=== PATIENT | female | born 1980 | race Hispanic/Latino ===

== ENCOUNTER 2017-05-11 21:08 | Emergency (ER) | payer OTHER ==
[~2017-05-11 21:08] MED LIST: DIFLUCAN150 MG PO; ZOFRAN ODT4 M1 SL
--- NOTE | 2017-05-11 23:56 | ED GI/GU/ABDOMINAL COMPLAINT ---
History of Present Illness General Chief Complaint: Abdominal Pain/Flank Pain Stated Complaint: PT IS HAVING BACK PAIN Source: patient Exam Limitations: no limitations Vital Signs & Intake/Output Vital Signs & Intake/Output Vital Signs Date Time Temp Pulse Resp B/P B/P Pulse O2 O2 Flow FiO2 Mean Ox Delivery Rate 05/12 0015 97.1 65 18 96/60 96 Room Air 05/11 2124 98.1 79 16 126/76 98 Room Air ED Intake and Output 05/12 0000 05/11 1200 Intake Total Output Total Balance Patient 245 lb Weight Weight Reported by Patient Measurement Method Allergies Coded Allergies: cat dander (SNEEZING, ITCHY EYES, HIVES 03/05/16) Reconcile Medications No Known Home Medications Triage Note: 36F C/O 10/10 LEFT LOWER BACK PAIN, SHARP AND CONSTACT WITH ASSOCIATED L SIDED ABDOMINAL PAIN, -N/V. +DIZZINESS. PAIN WORSE WITH MOVEMENT. DENIES SYMPTOMS. TOOK IBUPROFEN 2 HOURS AGO WITHOUT IMPROVEMENT. LAST BM TODAY AND NORMAL. DENIES CP/SOB. DENIES HEADACHE. AFEBRILE Triage Nurses Notes Reviewed? yes ? n Is pt currently ? No Onset: Gradual Duration: day(s): Timing: recent history Quality/Severity: mild Location: left flank Radiation: LLQ Activities at Onset: none Prior Abdominal Problems: none HPI: 6-year-old woman in prior good health presents with left back and left flank pain lasting for one day. She noted mild nausea. She notes that it hurts when she moves. She has no fever chills dyspnea chest pain diarrhea or dysuria or vaginal symptoms or syncopal type symptoms. She is otherwise well. She does not recall if she ate any inciting foods. She is presently in mild discomfort with pain in her left flank. Past History Travel History Traveled to [place] past 21 day No Medical History Any Pertinent Medical History? see below for history Neurological: NONE EENT: NONE Cardiovascular: hypertension Respiratory: asthma Gastrointestinal: NONE Hepatic: NONE Renal: NONE Musculoskeletal: NONE Psychiatric: NONE Endocrine: NONE Blood Disorders: NONE Cancer(s): NONE COAGULANT DIPPER/Reproductive: NONE Surgical History Surgical History: cholecystectomy Psychosocial History Who do you live with Family What is your primary language Albanian Tobacco Use: Current Daily Use Daily Tobacco Use Amount/Type: => 5 Cigarettes daily ETOH Use: occasional use Illicit Drug Use: denies illicit drug use Family History Hx Contributory? No Review of Systems Review of Systems Constitutional: Reports: no symptoms. EENTM: Reports: no symptoms. Respiratory: Reports: no symptoms. Cardiovascular: Reports: no symptoms. GI: Reports: no symptoms. Genitourinary: Reports: no symptoms. Musculoskeletal: Reports: no symptoms. Skin: Reports: no symptoms. Neurological/Psychological: Reports: no symptoms. Hematologic/Endocrine: Reports: no symptoms. Immunologic/Allergic: Reports: no symptoms. All Other Systems: Reviewed and Negative Physical Exam Physical Exam General Appearance: well developed/nourished, mild distress Head: atraumatic, normal appearance Eyes: Bilateral: normal appearance. Ears, Nose, Throat, Mouth: hearing grossly normal Neck: normal inspection, supple, full range of motion Respiratory: normal breath sounds, chest non-tender Cardiovascular: regular rate/rhythm Gastrointestinal: normal bowel sounds, soft, mild left upper tenderness to palpation. no rebound. no guarding. Back: muscle spasm, no vertebral tenderness, left sided muscle spasm and tenderness to palpation Core Measures ACS in differential dx? No Severe Sepsis Present: No Septic Shock Present: No Progress Differential Diagnosis: kidney stone, ovarian cyst, PUD/GERD, UTI/pyelo, vs other Plan of Care: Orders Procedure Date/time Status LIPASE 05/11 2337 Complete COMPREHENSIVE METABOLIC PANEL 05/11 2337 Complete CBC WITHOUT DIFFERENTIAL 05/11 2337 Complete AMYLASE 05/11 2337 Complete URINE 05/11 2129 Complete URINALYSIS 05/11 2129 Complete Laboratory Tests 05/12/17 0005: Anion Gap 9, Estimated GFR > 60, BUN/Creatinine Ratio 21.7, Glucose 102 H, Calcium 9.0, Total Bilirubin 0.3, AST 33, ALT 39, Alkaline Phosphatase 118, Total Protein 7.3, Albumin 3.7, Globulin 3.6, Albumin/Globulin Ratio 1.0 L, Amylase 70, Lipase 105, CBC w Diff NO MAN DIFF REQ, RBC 4.69, MCV 67.4 L, MCH 20.8 L, RDW 21.1 H, MPV 7.7, Gran % 45.8, Lymphocytes % 44.3, Monocytes % 5.6, Eosinophils % 3.7, Basophils % 0.6, Absolute Granulocytes 5.3, Absolute Lymphocytes 5.1 H, Absolute Monocytes 0.6, Absolute Eosinophils 0.4, Absolute Basophils 0.1, PUBS MCHC 30.8 L 05/11/172134: Urine Color YEL, Urine Clarity CLEAR, Urine pH 6.0, Ur Specific [place] 1.025, Urine Protein NEG, Urine Ketones NEG, Urine Nitrite NEG, Urine Bilirubin NEG, Urine Urobilinogen 0.2, Ur Leukocyte Esterase NEG, Ur Microscopic EXAM NOT REQUIRED, Urine Hemoglobin NEG, Urine Glucose NEG, Urine Test NEGATIVE Diagnostic Imaging: Viewed by Me: CT Scan. Discussed w/RAD: CT Scan. Radiology Impression: abd/pelvic ct... no acute change.. full report below. Initial ED EKG: normal axis, normal intervals, normal p-waves, normal QRS complex, normal sinus rhythm Comments: PATIENT: SRI PARR PRESENT AGE: 36 PATIENT ACCOUNT NO: [id number] : 78 LOCATION: [facility] ORDERING PHYSICIAN: ROOPA LOO MD SERVICE DATE: 05/11/17 EXAM TYPE: CAT - CT ABD & PELVIS W/O IV CONTRAS EXAMINATION: CT ABDOMEN AND PELVIS WITHOUT CONTRAST CLINICAL INFORMATION: Right lower quadrant pain. Left flank pain. COMPARISON: 08/28/2012 TECHNIQUE: Multidetector volumetric imaging was performed from the superior aspect of the liver through the pubic symphysis. Sagittal and coronal reformatted images were obtained on the technologist's workstation. DLP: 1236 mGy-cm FINDINGS: LUNG BASES: The visualized lung bases are unremarkable. Small lymph nodes in the epicardial fat are unchanged. LIVER, GALLBLADDER, AND BILIARY TREE: The liver is normal in size, shape, and attenuation. No focal hepatic lesion or biliary ductal dilatation is present. The gallbladder is not seen, likely absent. PANCREAS: Unremarkable. SPLEEN: Unremarkable. ADRENAL GLANDS: Unremarkable. KIDNEYS AND URETERS: The kidneys are normal in size, shape, and attenuation. No hydronephrosis, hydroureter, or calculi seen. No perinephric stranding. BLADDER: Unremarkable. GASTROINTESTINAL TRACT: The stomach and small bowel are unremarkable. No dilated loops of bowel or evidence of obstruction. There is a normal appendix. No colonic wall thickening or inflammatory change. Moderate colonic stool burden. No free air or free fluid. ABDOMINAL WALL: No significant hernia is appreciated. LYMPH NODES: Normal. VASCULAR: Unremarkable. PELVIC VISCERA: The uterus and adnexa are unremarkable. OSSEOUS STRUCTURES: No acute or suspicious osseous abnormalities. IMPRESSION: No acute findings of the abdomen or pelvis. Normal appendix. No hydronephrosis or nephrolithiasis. Moderate colonic stool burden. DICTATED BY: SALVADOR JONES MD DATE/TIME DICTATED:05/12/171 KEY ACCOUNT COORDINATOR:BLU DATE/TIME TRANSCRIBED:05/12/171 CONFIDENTIAL, DO NOT COPY WITHOUT APPROPRIATE AUTHORIZATION. <Electronically signed in Other Vendor System> SIGNED BY: SALVADOR JONES MD 05/12 0010 Departure Departure Disposition: HOME OR SELF CARE Condition: Stable Clinical Impression Primary Impression: Abdominal pain Referrals: PATIENT HAS NO PRIMARY CARE DR (PCP/Family) Departure Forms: Customer Survey General Discharge Information Prescriptions: Current Visit Scripts No Known Home Medications
--- NOTE | 2017-05-12 00:10 | CT SCAN REPORT ---
EXAMINATION: CT ABDOMEN AND PELVIS WITHOUT CONTRAST CLINICAL INFORMATION: Right lower quadrant pain. Left flank pain. COMPARISON: 08/28/2012 TECHNIQUE: Multidetector volumetric imaging was performed from the superior aspect of the liver through the pubic symphysis. Sagittal and coronal reformatted images were obtained on the technologist's workstation. DLP: 1236 mGy-cm FINDINGS: LUNG BASES: The visualized lung bases are unremarkable. Small lymph nodes in the epicardial fat are unchanged. LIVER, GALLBLADDER, AND BILIARY TREE: The liver is normal in size, shape, and attenuation. No focal hepatic lesion or biliary ductal dilatation is present. The gallbladder is not seen, likely absent. PANCREAS: Unremarkable. SPLEEN: Unremarkable. ADRENAL GLANDS: Unremarkable. KIDNEYS AND URETERS: The kidneys are normal in size, shape, and attenuation. No hydronephrosis, hydroureter, or calculi seen. No perinephric stranding. BLADDER: Unremarkable. GASTROINTESTINAL TRACT: The stomach and small bowel are unremarkable. No dilated loops of bowel or evidence of obstruction. There is a normal appendix. No colonic wall thickening or inflammatory change. Moderate colonic stool burden. No free air or free fluid. ABDOMINAL WALL: No significant hernia is appreciated. LYMPH NODES: Normal. VASCULAR: Unremarkable. PELVIC VISCERA: The uterus and adnexa are unremarkable. OSSEOUS STRUCTURES: No acute or suspicious osseous abnormalities. IMPRESSION: No acute findings of the abdomen or pelvis. Normal appendix. No hydronephrosis or nephrolithiasis. Moderate colonic stool burden.
[2017-05-12 00:15] VITALS: BP 96/60
[2017-05-12 00:29] LABS: ABSOLUTE BASOPHIL COUNT 0.1 /CUMM (0.0-0.2); ABSOLUTE EOSINOPHIL COUNT 0.4 /CUMM (0.0-0.7); ABSOLUTE GRANULOCYTE CT 5.3 /CUMM (1.4-6.5); ABSOLUTE LYMPH COUNT 5.1 /CUMM (1.2-3.4); ABSOLUTE MONOCYTE COUNT 0.6 /CUMM (0.10-0.60); BASOPHIL % 0.6 % (0.0-2.0); EOSINOPHIL % 3.7 % (0-5); GRANULOCYTE % 45.8 % (42.2-75.2); HEMATOCRIT 31.6 % (37-47); MEAN CORPUSCULAR HGB 20.8 PG (27.0-31.0); MEAN CORPUSCULAR HGB CONC 30.8 G/DL (33.0-37.0); MEAN CORPUSCULAR VOLUME 67.4 FL (81.0-99.0); MEAN PLATELET VOLUME 7.7 FL (7.4-10.4); PLATELET COUNT 317 /CUMM (130-400); RBC DISTRIBUTION WIDTH 21.1 % (11.5-14.5); RED BLOOD CELL CT 4.69 /CUMM (4.20-5.40); WHITE BLOOD CELL COUNT 11.6 /CUMM (4.8-10.8)
== END 2017-05-12 02:06 ==
LOC: ERH 21:08
PROVIDERS: Pediatrics
DX: R10.32 Left lower quadrant pain (principal)
CPT/HCPCS: 74176; 81003; 81025; 96372; J1885; J2405

== ENCOUNTER 2018-02-16 09:27 | Emergency (ER) | payer OTHER ==
[~2018-02-16] VITALS: Ht 165.1 cm; Wt 108.9 kg
[~2018-02-16 09:27] MED LIST changes: +BACTRIM DS TAB1 EACH PO; +IBUPROFEN800 M1 PO; +KEFLEX500 M1 PO
--- NOTE | 2018-02-16 10:47 | RADIOLOGY REPORT ---
EXAMINATION: XR FOOT, RIGHT CLINICAL INFORMATION: Possible foreign body. Stepped on glass COMPARISON: None TECHNIQUE: AP, lateral, and oblique views of the right foot. FINDINGS: No radiopaque foreign body is demonstrated. There is a small heel spur. No fracture. IMPRESSION: No radiopaque foreign body.
[2018-02-16] MEDS ORDERED: IBUPROFEN800 M1 PO (12:03)
[2018-02-16] MEDS ORDERED: BACTRIM DS TAB1 EACH PO (12:03)
--- NOTE | 2018-02-16 12:03 | ED ANKLE/FOOT INJURY COMPLAINT ---
History of Present Illness General Chief Complaint: Plantar Puncture Wound Stated Complaint: ? FOOT INFECTION S/P STEPPING ON GLASS Source: patient Exam Limitations: no limitations Vital Signs & Intake/Output Vital Signs & Intake/Output Vital Signs Date Time Temp Pulse Resp B/P B/P Pulse O2 O2 Flow FiO2 Mean Ox Delivery Rate 02/16 1217 97.9 88 16 124/71 99 Room Air 02/16 1043 95.6 02/16 0941 95.6 95 18 122/76 98 Room Air Allergies Coded Allergies: No Known Drug Allergies (Intermediate, NONE 02/16/18) cat dander (SNEEZING, ITCHY EYES, HIVES 03/05/16) Reconcile Medications Cephalexin (Keflex) 500 MG CAPSULE 500 MG PO 4 TIMES/DAY Cellulitis Ibuprofen 800 MG TABLET 1 TAB PO TID PAIN Ibuprofen 800 MG TABLET 1 TAB PO TID PRN pain Sulfamethoxazole/Trimethoprim (Bactrim Ds Tablet) 800 MG-160 MG TABLET 1 TAB PO BID ABSCESS Sulfamethoxazole/Trimethoprim (Bactrim Ds Tablet) 800 MG-160 MG TABLET 1 TAB PO BID infection Triage Note: C/O PAIN IN BOTTOM OF RIGHT FOOT X 3 DAYS, STATES SHE STEPPED ON A LARGE PIECE OF GLASS 3 WEEKS AGO. DENIES , LMP 01/29/18. Triage Nurses Notes Reviewed? yes Occurred: 3 days ago Duration: getting worse Severity: severe Severity Numbers: 8 Pain/Injury Location: Right: Foot. Method of Injury: stepped on glass Modifying Factors: Improves With: rest. Worsens With: immobilization. Associated Symptoms: swelling : No Patient currently breastfeeds: No HPI: 37 year old female presents to the emergency room for right foot pain. She states she stepped on glass three weeks ago that punctured through her slipper and was about an inch deep into her right foot. She pulled the glass out, cleaned it, and bandaged it up without seeing anyone for it. She was bleeding profusely when this occured. She has been able to ambulate until three days ago when the pain was too much and she started to grow a "bubble." The pain is 8/10, burning pain that does not radiate anywhere when she walks, otherwise she is without pain at rest. Her foot is also swollen. She denies drainage from the wound site, fever, dizziness, shortness of breath, nausea, numbness, or tingling. She denies having a tetanus shot. (Kenny Herrera) Past History Travel History Traveled to [place] past 21 day No Medical History Any Pertinent Medical History? see below for history Neurological: NONE EENT: NONE Cardiovascular: hypertension Respiratory: asthma Gastrointestinal: NONE Hepatic: NONE Renal: NONE Musculoskeletal: NONE Psychiatric: NONE Endocrine: NONE Blood Disorders: NONE Cancer(s): NONE MATERIALS ANALYST/Reproductive: NONE Surgical History Surgical History: cholecystectomy Psychosocial History Who do you live with Family What is your primary language Nicaraguan Tobacco Use: Current Daily Use Daily Tobacco Use Amount/Type: => 5 Cigarettes daily ETOH Use: denies use Family History Family History, If Any: Relation not specified for: FH: diabetes mellitus FH: hypertension Hx Contributory? No (Kenny Herrera) Review of Systems Review of Systems Constitutional: Reports: see HPI. EENTM: Reports: no symptoms. Respiratory: Reports: no symptoms. Cardiovascular: Reports: no symptoms. GI: Reports: no symptoms. Genitourinary: Reports: no symptoms. Musculoskeletal: Reports: no symptoms. Skin: Reports: no symptoms. Neurological/Psychological: Reports: no symptoms. Hematologic/Endocrine: Reports: no symptoms. Immunologic/Allergic: Reports: no symptoms. (Kenny Herrera) Physical Exam Physical Exam General Appearance: well developed/nourished Head: atraumatic, normal appearance Eyes: Bilateral: normal appearance. Ears, Nose, Throat: normal ENT inspection Neck: normal inspection, supple, full range of motion Cardiovascular/Respiratory: no respiratory distress Leg/Knee/Thigh Left: normal inspection Ankle Left: normal inspection, normal range of motion Ankle Right: normal inspection, normal range of motion Foot Left: normal inspection Foot Right: normal inspection, Right foot is swollen with a healing wound on the plantar lateral aspect of her foot with a 6 mm firm fluctuant abscess now. There is no surrounding erythema, warmth, or necrosis. There is tenderness to palpation to the site Neuro/Vascular: normal motor function, normal sensation Psychiatric: awake, alert, oriented x 3 Skin: intact (Kenny Herrera) Progress Differential Diagnosis: abscess, cellulitis, foreign body, fracture, Plan of Care: Orders Procedure Date/time Status EXTREMETIES CULTURE 02/16 1206 Active Microbiology 02/17 1208 EXTREMITIE: Culture & Sensitivity - RECD 04/19 1208 EXTREMITIE: Gram Stain - RECD Diagnostic Imaging: Viewed by Me: Radiology Read. Discussed w/RAD: Radiology Read. Radiology Impression: PATIENT: SRI PARR PRESENT AGE : 37 PATIENT ACCOUNT NO: [id number] : 78 LOCATION: [facility] ORDERING PHYSICIAN: Sebastien Carlin MD SERVICE DATE: 02/16/18 EXAM TYPE: RAD - XRY- FOOT COMPLETE, R EXAMINATION: XR FOOT, RIGHT CLINICAL INFORMATION: Possible foreign body. Stepped on glass COMPARISON: None TECHNIQUE: AP, lateral, and oblique views of the right foot. FINDINGS: No radiopaque foreign body is demonstrated. There is a small heel spur. No fracture. IMPRESSION: No radiopaque foreign body. DICTATED BY: Sam Rea MD DATE/TIME DICTATED:02/16/181041 MECHANICAL DESIGN ENGINEER:BLU DATE/TIME TRANSCRIBED:02/16/181041 CONFIDENTIAL, DO NOT COPY WITHOUT APPROPRIATE AUTHORIZATION. <Electronically signed in Other Vendor System> SIGNED BY: Sam Rea MD 02/16/181046 (Kenny Herrera) Departure Departure Disposition: HOME OR SELF CARE Condition: Stable Clinical Impression Primary Impression: Puncture wound of right foot Secondary Impressions: Abscess of foot Referrals: Patient Has No Primary Care Dr (PCP/Family) Additional Instructions: Take Bactrim and ibuprofen as prescribed. Warm compresses. Soak the foot in warm water. Have recheck in 3-4 days. Return if any other concerns worsening symptoms. Please go over all results of today's visit with your primary care doctor. Contact your primary care doctor to let them know you were here in the emergency room. There may be nonspecific findings which may not be related to your visit today here in the emergency room but may require further evaluation and chronic monitoring by your primary care doctor. If you had a laceration today the chance of foreign body always remains. You should follow-up with your primary care doctor for recheck in 3-5 days for a wound check. If you had an x-ray done there is a chance that a fracture could have been missed on initial read and you should follow-up with your primary care doctor for repeat x-rays if symptoms persist. If your blood pressure was elevated here in the emergency room please have rechecked by [facility] primary care doctor within the next 48. If you were prescribed a narcotic here in the emergency room or any type of controlled substances you're not allowed to drive while taking this medication or operate any type of heavy machinery. Narcotics can make you feel lightheaded dizziness nausea and can cause constipation. You may need to corn picker a stool softener. Thank you for choosing [facility] emergency room. Please return to the emergency room immediately if you have any other concerns worsening of symptoms. Departure Forms: Customer Survey General Discharge Information Prescriptions: Current Visit Scripts Sulfamethoxazole/Trimethoprim (Bactrim Ds Tablet) 1 TAB PO BID #14 TAB Ibuprofen 1 TAB PO TID #30 TAB (Kenny Herrera) PA/CUSHION SEWER Co-Sign Statement Statement: ED Attending supervision documentation- I saw and evaluated the patient. I have also reviewed all the pertinent lab results and diagnostic results. I agree with the findings and the plan of care as documented in the PA's/CUSHION SEWER's documentation. x I have reviewed the ED Record and agree with the PA's/CUSHION SEWER's documentation. [] Additions or exceptions (if any) to the PAs/CUSHION SEWER's note and plan are summarized below: [] ([place],Sebastien) Procedures Incision and Drainage Site: right foot Blade Size: 11 I & D Procedure: Yes: betadine prep, sterile drapes applied, sterile dressing applied. Progress: 1% lidocaine with epinephrine, 2 mL injected, wound culture obtained, performed by PA student with my supervision (Kenny Herrera)
[2018-02-16 12:17] VITALS: BP 124/71
== END 2018-02-16 12:37 ==
LOC: ERH 09:27
DX: S91.331A Puncture wound without foreign body, right foot, initial encounter (principal); L02.611 Cutaneous abscess of right foot; W25.XXXA Contact with sharp glass, initial encounter; Y93.01 Activity, walking, marching and hiking; Y92.9 Unspecified place or not applicable
CPT/HCPCS: 87184; 73630-RT; 87070; 87147; 90471; 90714